=== PATIENT | male | born 1975 | race Caucasian/White ===

== ENCOUNTER → 2017-11-17 08:55 | Outpatient (REF) | payer SELFPAY | LOC: OM 08:55 | PROVIDERS: PCP Family Medicine; Visit Provider Nurse Practitioner Family | DX: Z02.79 Encounter for issue of other medical certificate (principal) ==

== ENCOUNTER 2020-04-14 17:57 | Outpatient (REF) | payer MEDICAID, SELFPAY ==
[2020-04-14 16:28] LABS: ALT 47 U/L (16-63); AST 24 U/L (15-37); Albumin 4.6 g/dL (3.4-5.0); Alkaline Phosphatase 53 U/L (46-116); Anion Gap 8.7 mmol/L (3-11); BUN 18 mg/dL (7-18); Bilirubin, Total 0.6 mg/dL (0.2-1.0); CO2 27.3 mmol/L (21.0-32.0); CREATININE 1.16 mg/dL (0.70-1.30); Chloride 101 mmol/L (98-107); Glucose 94 mg/dL (74-106); Potassium 3.8 mmol/L (3.5-5.1); Sodium 137 mmol/L (136-145); Total Protein 7.4 g/dL (6.4-8.2)
[2020-04-14 16:36] LABS: Abs Immature Grans 0.03 10^3/uL (0.0-0.06); Absolute Basophil Count 0.06 10^3/uL (0.0-0.2); Absolute Eosinophil Count 0.06 10^3/uL (0.0-0.7); Absolute Lymphocyte Count 1.93 10^3/uL (1.2-3.4); Absolute Monocyte Count 0.43 10^3/uL (0.1-0.8); Absolute Neutrophil Count 6.52 10^3/uL (1.2-6.7); Basophils % 0.7; Eosinophils % 0.7; HCT 43.9 % (40.0-50.0); HGB 14.7 g/dL (13.5-17.5); Immature Grans % 0.3; Lymphocytes % 21.4; MCH 27.4 pg (27.0-33.0); MCHC 33.5 % (32.0-36.0); MCV 81.9 fL (80-95); Monocytes % 4.8; Neutrophils % 72.1; Nucleated RBC 0 %; Platelet Count 259 10^3/uL (130-400); RBC 5.36 10^6/uL (4.36-5.78); WBC 9.03 10^3/uL (4.4-10.8)
[2020-04-17 16:50] LABS: Testosterone, Total 177 ng/dL (240-950)
== END 2020-04-14 18:17 ==
LOC: LBN 17:57
PROVIDERS: PCP Family Medicine; Visit Provider Surgery
DX: N52.9 Male erectile dysfunction, unspecified (principal); K64.9 Unspecified hemorrhoids; Z12.11 Encounter for screening for malignant neoplasm of colon; Z72.0 Tobacco use
CPT/HCPCS: 80053; 84402; 84403; 85025

== ENCOUNTER 2020-04-25 02:05 | Outpatient (CLI) | payer MEDICAID, SELFPAY ==
[2020-04-26 11:30] LABS: COVID-19 RT-PCR UVMMC Result Negative (Negative)
== END 2020-04-25 02:06 | disposition home or self-care (01) ==
LOC: LBO 02:05
PROVIDERS: PCP Nurse Practitioner Family; Visit Provider Surgery
DX: Z20.822 Contact with and (suspected) exposure to COVID-19 (principal); Z01.818 Encounter for other preprocedural examination
CPT/HCPCS: U0003

== ENCOUNTER 2020-04-29 07:21 | Day surgery (SDC) | payer MEDICAID, SELFPAY ==
[2020-04-29 07:32] VITALS: BP 122/83; PULSE 74; RESP 16; TEMP 36.7; O2SAT 100
[2020-04-29] MEDS: Lactated Ringers 1,000 ML 80 ML IV (08:50)
--- NOTE | 2020-04-29 09:41 | W.COLOREPORT ---
Date of service: 04/29/20 Time of Service: 09:42 Colonoscopy Report Date of procedure: 04/29/20 Pre-op diagnosis general: rectal bleeding/screening Post-op diagnosis procedure note: other Surgeon: Hermelinda Jansen Anesthesia proc note operative: GETA and MAC Estimated blood loss (mL): 0 Pathology: none sent Complications: None Disposition: same day Prep: Miralax/Dulcolax Retraction Time: 8 mins Procedure Description: After informed consent was obtained the patient was taken to the procedure room and placed in a left decubitous position. Monitors were applied and a time out was done. The patients name, date of , procedure, allergies to medications and metal in their body was reviewed. The patient was then sedated. Once sedated and comfortable a rectal exam was done. External exam: anal fissure in 6oclock position- 70% healed. Internal exam revealed a normal sphincter tone and no palpable masses. The scope was then introduced and retrofelexed. NO internal hemorrhoids were identified. The scope was then advanced to the cecum w/out difficulty. The TI and appendiceal orifice were identified. The prep was good. The scope was then slowly retracted over 8 minutes back into the rectum. No polyps or diverticula. x2 very small AVM's at 50cm. The scope was removed and the patient was woken up and taken back to Same day surgery in stable condition. The patient tolerated the procedure well and there were no immediate complications. Follow up: The patient should follow up in 10years unless they develop changes in bowel habits or other new gastrointestinal complaints.
--- NOTE | 2020-04-29 09:44 | PDOC.DSDIS_ITS ---
Discharge Plan Disposition Patient Disposition: HOME Condition: Good Discharge Details Reason For Visit: colon scope Attending Provider: Hermelinda Jansen Primary Care Provider: Kalen Atkinson Home Meds and New Rx's Prescriptions: No Action sildenafil [Viagra] 50 mg tablet 50 mg PO DAILY PRN (Reason: sexual activity) Qty: 5 RF: 0 Discharge Instructions Additional Instructions: Findings:rectal fissure. Treatment of your bowels daily to every other day. Avoid straining to move your bowels. I would recommend starting a fiber supplement. See attached information. Follow up: Repeat colonoscopy in 10 years time. Please call if you develop: fevers >101.5 Nausea or Vomiting Abdominal pain that is not transient DAY SURGERY UNIT POST COLONOSCOPY INSTRUCTIONS 1. Because there will be medication in your system for the next 24 hours, you may feel a little sleepy. Your coordination will be affected. Therefore: a. Do not drive or operate dangerous equipment for 24 hours. b. Do not drink alcohol beverages for 24 hours (not even beer). c. Plan to go home and rest for the day. 2. Generally there are no restrictions on your activity after a day or so has gone by, but you may feel a bit fatigued for a few days. 3 After you arrive home you may have a light meal and return to a normal diet as you can tolerate it without feeling sick to your stomach. 4. After surgery, you may feel pain or discomfort. This should be only transient, but if it persists please contact your doctor. 5. If there are any questions regarding the findings of your procedure, please feel free to contact your doctor. 6. If you are unable to contact your doctor with a problem, contact the hospital at [phone]. 7. Continue all your regular medications unless directed otherwise. I understand the above instructions and have no questions. Signature of Patient or Responsible Adult Escort Date/Time Name of Responsible Adult Escort Signature of Nurse Date/Time Starting A Taking a Fiber Supplement Dietary fiber is a plant-based nutrient that's necessary for the healthy functioning of your digestive system. In addition to helping your bowels stay regular, it's also useful for maintaining optimum cholesterol and blood sugar levels as well as a healthy weight. Although it's technically a carbohydrate, it 's not the kind that can be broken down into digestible sugars by the body. Instead, fiber travels through your digestive system while bulking and softening your stool?making it easier to pass. It also helps absorb excess blood sugars and cholesterols. The [place] [employer] recommends 30 grams (g) of fiber a day for men, and 25g a day for women. Fiber is found in fruits, vegetables, legumes, and whole grains, and is an important part of the diet. But because many people find it difficult to eat the recommended quantity of 25 to 38 g per day, fiber supplementation can be extremely helpful to ease the symptoms of a variety of digestive discomforts like diarrhea and constipation. Today, many fiber supplements are found on the market containing one of three active ingredients: psyllium, methylcellulose, and polycarbophil Health Benefits If you have diarrhea, supplementing with fiber can bulk up the stool and reduce frequent urges to evacuate the bowel. If you have constipation, fiber supplements can soften your stool and speed up its movement through the colon. To understand how fiber helps relieve symptoms of both diarrhea and constipation, it's important to differentiate between soluble fiber and insoluble fiber. Soluble fiber forms a gel in your colon by absorbing water and retaining it in your stool, which makes bowel movements softer and easier to pass. Insoluble fiber bulks stool up, which also helps it move through your intestines more easily. Thus, fiber can also help you avoid hemorrhoids and anal fissures that can develop when straining to pass a bowel movement. Additionally, supplementing with fiber can be part of a treatment plan for conditions such as irritable bowel syndrome (IBS), various types of inflammatory bowel disease (IBD) like Crohn's disease and ulcerative colitis, as well as diverticulosis. Fiber increases satiety, or fullness, and is thus helpful for those looking to lose weight or maintain a healthy weight. Sufficient fiber intake has also been shown to decrease the risk of certain cancers, heart disease, and diabetes. There is also evidence that enough fiber, when combined with a diet rich in Vitamin A, has a protective effect against food allergies. Possible Side Effects The potential side effects of fiber supplementation include: ? Gas and gas pain ? Abdominal bloating ? Lowered blood sugar ? Diarrhea or constipation (if taken in excess) ? Weight loss ? Lessened effectiveness of medications and vitamins (if taken at the same time as fiber) Because of the way fiber supplements bulk up in the intestinal tract and absorb surrounding materials, they can interfere with the body's ability to assimilate medications, vitamins, and nutrients. For that reason, it's important to consume fiber supplements at least one hour after, or two hours before, taking medications and important vitamins. Dosage and Preparation Fiber supplements often come in the form of powders meant to be mixed with water or another liquid. They also are available in capsule form, or as additives to foods like crackers, cookies, cereals, and bars. Dosage will vary based on the product and your desired effects. If you are healthy, it's generally recommended to start with a low dose of fiber and build up until you've reached optimum total daily fiber intake?roughly 25g for women and 38g for men?which should also include your dietary sources of fiber What to Look For When shopping for fiber, look closely at the ingredients to discover which form of fiber is used in each commercial brand. Also, if you're avoiding added sugar, salt, flavorings, or dyes, check the label for these common additives. If you're just starting with a fiber supplement, use a low dose and drink plenty of water when you take the supplement and throughout the day. If you are not used to eating a high fiber diet/taking a supplement, start with about half of the recommended dose. Always remember to take fiber with 8oz of water. Continue at this dose for about 2-3 weeks, and then slowly increase up to the full dose daily. Fiber is a natural product- you can increase the dose to 2-4 times a day as needed to have a formed BM without straining. Increase the dose slowly until you reach either the desired total intake or a specific effect. Psyllium Psyllium is made from the seeds of a plant in the Plantago genus and contains about 70% soluble fiber and 30% insoluble fiber. It helps the stool absorb water and bulks it up, making it easier to pass. It also breaks down in the gut (a process called fermentation) and becomes a food source for the good bacteria that reside there. Psyllium is used for treating constipation, irritable bowel syndrome (IBS), and diverticulosis. In addition, psyllium may lower cholesterol levels and provide some protection from heart disease. On the downside, psyllium may cause intestinal gas and contains a small number of calories (roughly 20 calories per tablespoon). Psyllium is sold under the brand names Metamucil, Fiberall, Hydrocil, Konsyl, Perdiem, and Serutan. Methylcellulose Methylcellulose is a non-allergenic and non-fermentable fiber created from the cell tate of plants. Instead of being absorbed by the intestinal tract, methylcellulose pulls in water to create a softer stool. Methylcellulose is often used to treat constipation, diverticulosis, IBS, and some causes of diarrhea. Because it does not ferment, it is less likely than psyllium to cause intestinal gas; however, methylcellulose does not feed healthy gut bacteria the way psyllium does. It can be used long term care phlebotomist but it should be noted that, because it can interfere with absorption, methylcellulose should be taken apart from any prescribed medications. Methylcellulose is sold under the brand name Citrucel. Polycarbophil Similar to methylcellulose, polycarbophil absorbs water in the intestinal tract and creates a bulkier and softer stool. Because it does not ferment and is not absorbed by the body, polycarbophil is less likely to cause bloating and can, therefore, be comfortably used long term care phlebotomist. Polycarbophil may be used to treat constipation, IBS, and diverticulosis, but is not appropriate for people who have difficulty swallowing. Like methylcellulose, it should be taken about two hours apart from medications. Polycarbophil is sold under the brand names Fibercon, Fiber-Lax, Equalactin, and Mitrolan. Other Questions What are the best dietary sources of fiber? Whether or not you choose to supplement with fiber, it's still important to include a variety of high-fiber foods in your diet, such as: ? Fresh fruit (pears, apples, strawberries, bananas) ? Fresh vegetables (broccoli, Brussel sprouts, beets, and carrots) ? Legumes (lentils, split peas, kidney beans, chickpeas, black beans, zaman beans) ? Whole Grains (quinoa, oats, brown rice, millet, barley) ? Other food sources of fiber (popcorn, sweet potatoes, and ann) What time of day is best? Different manufacturers may have varying recommendations on when and how frequently to take fiber supplements. You may want to divide your daily dose into two or three portions to reduce bloating and gas that could occur when taking a large dose all at once. To avoid malabsorption, it's important to take medications or vitamins either one hour before, or two hours after, taking fiber supplements. If using a powdered form of fiber, be sure to dissolve it well. No matter what kind of fiber supplement you are using, be sure to drink plenty of water, at least 8ox, unless you are on fluid restrictions. Activity:: No strenuous activity or lifting over 20 pounds x 24 hours. 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
--- NOTE | 2020-04-29 09:49 | COLE_ITS ---
Date of service: 04/29/20 Time of Service: 09:49 Colonoscopy Report Date of procedure: 04/29/20 Post-op diagnosis procedure note: other (fissure. x2 small AVM's ) Surgeon: Hermelinda Jansen Anesthesia proc note operative: GETA Estimated blood loss (mL): 0 Pathology: none sent Complications: None Disposition: same day Prep: Miralax/Dulcolax Retraction Time: 8mins Procedure Description: After informed consent was obtained the patient was taken to the procedure room and placed in a left decubitous position. Monitors were applied and a time out was done. The patients name, date of , procedure, allergies to medications and metal in their body was reviewed. The patient was then sedated. Once sedated and comfortable a rectal exam was done. External exam shows a small anal fissure in the 6 o'clock position. It is about 75% healed. There is no sentinel tag. Internal exam revealed a normal sphincter tone and no palpable masses. The prostate normal. The scope was then introduced and retrofelexed. no internal hemorrhoids were identified. The scope was then advanced to the cecum w/out difficulty. The TI and appendiceal orifice were identified. The prep was good. The scope was then slowly retracted over minutes back into the rectum. x2 very small AVM's at 50cm. Do not feel that these are contributing to the bleeding and these were not fulgurated. There were no polyps, diverticula, or other abnormalities. The mucosa is pink and healthy. the scope was removed and the patient was woken up and taken back to Same day surgery in stable condition. The patient tolerated the procedure well and there were no immediate co mplications. Follow up: The patient should follow up in 10 years unless they develop changes in bowel habits or other new gastrointestinal complaints. I did review with the patient the findings at the time of surgery. I do recommend he start a fiber supplement and avoid straining to go to the bathroom. We discussed symptoms/supportive care. If he is still having pain or bleeding after 1 to 2 months, he should follow-up with us in the clinic and we will consider adding in a topical medication. This is a very minor disease, and he should be able to control this with diet and lifestyle. Patient is in agreement
[2020-04-29 10:17] VITALS: BP 114/76; PULSE 66; RESP 16; TEMP 36.5; O2SAT 99
--- NOTE | 2020-04-29 10:45 | PDOC.DSDIS_ITS ---
Discharge Plan Disposition Patient Disposition: HOME Condition: Good Discharge Details Reason For Visit: colon scope Attending Provider: Hermelinda Jansen Primary Care Provider: Kalen Atkinson Home Meds and New Rx's Prescriptions: No Action sildenafil [Viagra] 50 mg tablet 50 mg PO DAILY PRN (Reason: sexual activity) Qty: 5 RF: 0 Discharge Instructions Additional Instructions: Findings:rectal fissure. Treatment of your bowels daily to every other day. Avoid straining to move your bowels. I would recommend starting a fiber supplement. See attached information. F/u in 1 months time if still having pain or bleeding Follow up: Repeat colonoscopy in 10 years time. Please call if you develop: fevers >101.5 Nausea or Vomiting Abdominal pain that is not transient DAY SURGERY UNIT POST COLONOSCOPY INSTRUCTIONS 1. Because there will be medication in your system for the next 24 hours, you may feel a little sleepy. Your coordination will be affected. Therefore: a. Do not drive or operate dangerous equipment for 24 hours. b. Do not drink alcohol beverages for 24 hours (not even beer). c. Plan to go home and rest for the day. 2. Generally there are no restrictions on your activity after a day or so has gone by, but you may feel a bit fatigued for a few days. 3 After you arrive home you may have a light meal and return to a normal diet as you can tolerate it without feeling sick to your stomach. 4. After surgery, you may feel pain or discomfort. This should be only transient, but if it persists please contact your doctor. 5. If there are any questions regarding the findings of your procedure, please feel free to contact your doctor. 6. If you are unable to contact your doctor with a problem, contact the hospital at [phone]. 7. Continue all your regular medications unless directed otherwise. I understand the above instructions and have no questions. Signature of Patient or Responsible Adult Escort Date/Time Name of Responsible Adult Escort Signature of Nurse Date/Time Starting A Taking a Fiber Supplement Dietary fiber is a plant-based nutrient that's necessary for the healthy functioning of your digestive system. In addition to helping your bowels stay regular, it's also useful for maintaining optimum cholesterol and blood sugar levels as well as a healthy weight. Although it's technically a carbohydrate, it's not the kind that can be broken down into digestible sugars by the body. Instead, fiber travels through your digestive system while bulking and softening your stool?making it easier to pass. It also helps absorb excess blood sugars and cholesterols. The [place] [employer] recommends 30 grams (g) of fiber a day for men, and 25g a day for women. Fiber is found in fruits, vegetables, legumes, and whole grains, and is an important part of the diet. But because many people find it difficult to eat the recommended quantity of 25 to 38 g per day, fiber supplementation can be extremely helpful to ease the symptoms of a variety of digestive discomforts like diarrhea and constipation. Today, many fiber supplements are found on the market containing one of three active ingredients: psyllium, methylcellulose, and polycarbophil Health Benefits If you have diarrhea, supplementing with fiber can bulk up the stool and reduce frequent urges to evacuate the bowel. If you have constipation, fiber supplements can soften your stool and speed up its movement through the colon. To understand how fiber helps relieve symptoms of both diarrhea and constipation, it's important to differentiate between soluble fiber and insoluble fiber. Soluble fiber forms a gel in your colon by absorbing water and retaining it in your stool, which makes bowel movements softer and easier to pass. Insoluble fiber bulks stool up, which also helps it move through your intestines more easily. Thus, fiber can also help you avoid hemorrhoids and anal fissures that can develop when straining to pass a bowel movement. Additionally, supplementing with fiber can be part of a treatment plan for conditions such as irritable bowel syndrome (IBS), various types of inflammatory bowel disease (IBD) like Crohn's disease and ulcerative colitis, as well as diverticulosis. Fiber increases satiety, or fullness, and is thus helpful for those looking to lose weight or maintain a healthy weight. Sufficient fiber intake has also been shown to decrease the risk of certain cancers, heart disease, and diabetes. There is also evidence that enough fiber, when combined with a diet rich in Vitamin A, has a protective effect against food allergies. Possible Side Effects The potential side effects of fiber supplementation include: ? Gas and gas pain ? Abdominal bloating ? Lowered blood sugar ? Diarrhea or constipation (if taken in excess) ? Weight loss ? Lessened effectiveness of medications and vitamins (if taken at the same time as fiber) Because of the way fiber supplements bulk up in the intestinal tract and absorb surrounding materials, they can interfere with the body's ability to assimilate medications, vitamins, and nutrients. For that reason, it's important to consume fiber supplements at least one hour after, or two hours before, taking medications and important vitamins. Dosage and Preparation Fiber supplements often come in the form of powders meant to be mixed with water or another liquid. They also are available in capsule form, or as additives to foods like crackers, cookies, cereals, and bars. Dosage will vary based on the product and your desired effects. If you are healthy, it's generally recommended to start with a low dose of fiber and build up until you've reached optimum total daily fiber intake?roughly 25g for women and 38g for men?which should also include your dietary sources of fiber What to Look For When shopping for fiber, look closely at the ingredients to discover which form of fiber is used in each commercial brand. Also, if you're avoiding added sugar, salt, flavorings, or dyes, check the label for these common additives. If you're just starting with a fiber supplement, use a low dose and drink plenty of water when you take the supplement and throughout the day. If you are not used to eating a high fiber diet/taking a supplement, start with about half of the recommended dose. Always remember to take fiber with 8oz of water. Continue at this dose for about 2-3 weeks, and then slowly increase up to the full dose daily. Fiber is a natural product- you can increase the dose to 2-4 times a day as needed to have a formed BM without straining. Increase the dose slowly until you reach either the desired total intake or a specific effect. Psyllium Psyllium is made from the seeds of a plant in the Plantago genus and contains about 70% soluble fiber and 30% insoluble fiber. It helps the stool absorb water and bulks it up, making it easier to pass. It also breaks down in the gut (a process called fermentation) and becomes a food source for the good bacteria that reside there. Psyllium is used for treating constipation, irritable bowel syndrome (IBS), and diverticulosis. In addition, psyllium may lower cholesterol levels and provide some protection from heart disease. On the downside, psyllium may cause intestinal gas and contains a small number of calories (roughly 20 calories per tablespoon). Psyllium is sold under the brand names Metamucil, Fiberall, Hydrocil, Konsyl, Perdiem, and Serutan. Methylcellulose Methylcellulose is a non-allergenic and non-fermentable fiber created from the cell tate of plants. Instead of being absorbed by the intestinal tract, methylcellulose pulls in water to create a softer stool. Methylcellulose is often used to treat constipation, diverticulosis, IBS, and some causes of diarrhea. Because it does not ferment, it is less likely than psyllium to cause intestinal gas; however, methylcellulose does not feed healthy gut bacteria the way psyllium does. It can be used bed bug exterminator but it should be noted that, because it can interfere with absorption, methylcellulose should be taken apart from any prescribed medications. Methylcellulose is sold under the brand name Citrucel. Polycarbophil Similar to methylcellulose, polycarbophil absorbs water in the intestinal tract and creates a bulkier and softer stool. Because it does not ferment and is not absorbed by the body, polycarbophil is less likely to cause bloating and can, therefore, be comfortably used bed bug exterminator. Polycarbophil may be used to treat constipation, IBS, and diverticulosis, but is not appropriate for people who have difficulty swallowing. Like methylcellulose, it should be taken about two hours apart from medications. Polycarbophil is sold under the brand names Fibercon, Fiber-Lax, Equalactin, and Mitrolan. Other Questions What are the best dietary sources of fiber? Whether or not you choose to supplement with fiber, it's still important to include a variety of high-fiber foods in your diet, such as: ? Fresh fruit (pears, apples, strawberries, bananas) ? Fresh vegetables (broccoli, Brussel sprouts, beets, and carrots) ? Legumes (lentils, split peas, kidney beans, chickpeas, black beans, zaman beans) ? Whole Grains (quinoa, oats, brown rice, millet, barley) ? Other food sources of fiber (popcorn, sweet potatoes, and ann) What time of day is best? Different manufacturers may have varying recommendations on when and how frequently to take fiber supplements. You may want to divide your daily dose into two or three portions to reduce bloating and gas that could occur when taking a large dose all at once. To avoid malabsorption, it's important to take medications or vitamins either one hour before, or two hours after, taking fiber supplements. If using a powdered form of fiber, be sure to dissolve it well. No matter what kind of fiber supplement you are using, be sure to drink plenty of water, at least 8ox, unless you are on fluid restrictions. TREATMENT How is an anal fissure treated? You may also need to have the cause of your anal fissure treated. You may need any of the following to treat your anal fissure: Home care: Sitz bath: You may need to soak in a warm tub or take a sitz bath. A sitz bath may decrease your pain and relax your anal muscle. You may need to do this more than once a day. Ask your healthcare provider for information on how to use a sitz bath and how often you should bathe. Nutrition: Eat foods that are high in fiber. This will help keep your bowel movements soft. High-fiber foods include fruits, vegetables, and whole grains. Drink more liquids: Liquids may help soften your bowel movements. This will help prevent you from straining. Ask your healthcare provider how much liquid you should drink each day. Medicine: Topical medicine: Topical medicine may be put just inside your anus. The medicine may help your anal muscle relax and increase blood flow to your anus. This medicine may contain anesthesia to help decrease your pain. Your healthcare provider will teach you the right way to use topical medicine. Botulinum toxin: This is medicine given as a shot into the skin around your anus. It helps your anal muscle relax. Ask your healthcare provider for more information about botulinum toxin. Surgery: You may need surgery if other treatments do not work. You may also need surgery if your anal fissure is very painful. Surgery is often used for chronic anal fissures. The most common surgery is called a lateral internal sphincterotomy. A small part of your anal muscle is cut to help relax your anal muscle and decrease your pain. Your healthcare provider may remove all or some of your anal fissure. This is called a fissurectomy. What are the risks of an anal fissure? Topical medicine for your anal fissure may give you a headache or make you feel lightheaded. Your skin may become red and you may also have a burning feeling on your anus. The botulinum toxin shot may hurt and may cause muscle weakness. It may also cause a painful infection of the tissue covering your anal muscles. You may also be less able to feel the area in and around your anus. Botulinum toxin or surgery may make you unable to control your bowel movements or passing gas. This is called incontinence. Surgery may also cause bleeding, an infection, or injury to your anal tissue. Even with treatment, your anal fissure may occur again. Without treatment, your anal fissure may deepen or become infected. You may develop an abnormal opening from your anus to nearby organs. Scar tissue may form in your anus and cause it to become narrow. Without treatment, you may have worse pain during bowel movements. When should I contact my healthcare provider? You are unable to have a bowel movement. You have spasms in your anus that do not stop. When should I seek immediate care or call 911? You have very bad pain in or around your anus. You have bleeding from your anus that does not stop. CARE AGREEMENT: You have the right to help plan your care. Learn about your health condition and how it may be treated. Discuss treatment options with your healthcare providers to decide what care you want to receive. You always have the right to refuse treatment. The above information is an certified medical aide only. It is not intended as medical advice for individual conditions or treatments. Talk to your doctor, nurse or pharmacist before following any medical regimen to see if it is safe and effective for you. ? Copyright [employer] 2019 Information is for End User's use only and may not be sold, redistributed or otherwise used for commercial purposes. All illustrations and images included in CareNotes? are the copyrighted property of P Activity:: No strenuous activity or lifting over 20 pounds x 24 hours. 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
== END 2020-04-29 10:54 | disposition home or self-care (01) ==
PROVIDERS: PCP Nurse Practitioner Family; Visit Provider Surgery
PROC: 0DJD8ZZ Inspection of Lower Intestinal Tract, Via Natural or Artificial Opening Endoscopic (ICD-10-PCS; CPT 45378; principal; 2020-04-29 09:15)
DX: K62.5 Hemorrhage of anus and rectum (principal); K60.1 Chronic anal fissure; Q27.33 Arteriovenous malformation of digestive system vessel
CPT/HCPCS: 45378

== ENCOUNTER 2020-06-04 00:41 | Outpatient (CLI) | payer MEDICAID, SELFPAY ==
--- NOTE | 2020-06-04 08:30 | DI.US_ITS ---
EXAM: US SOFT TISSUE HEAD OR NECK CLINICAL HISTORY: Scalp mass. Hx of prev. excision '05,r22.0. TECHNIQUE: Ultrasound was performed of the area of concern on the front of the scalp was performed, using standard protocol. COMPARISON: No exams were available for comparison FINDINGS: There is no evidence of subcutaneous cyst at this level. However, there is some deeper slightly asym metric tissue just superficial to the outer table of the skull, apparently corresponding to the palpa ble area. There is no obvious dehiscence of the subjacent bone. No obvious vessels seen in this reg ion. IMPRESSION: Relatively avascular asymmetric tissue corresponding to the area of concern, measuring approximately 11 x 10 millimeters. This is non cystic. Recommend follow-up MRI. DATA REPOSITORY:
== END 2020-06-04 01:01 ==
PROVIDERS: PCP Nurse Practitioner Family; Visit Provider Physical Therapy Assistant
DX: R22.0 Localized swelling, mass and lump, head (principal)
CPT/HCPCS: 76536

== ENCOUNTER 2021-02-02 11:11 | Emergency (ER) | payer MEDICAID, SELFPAY ==
[2021-02-02 11:25] VITALS: BP 134/100; PULSE 90; RESP 14; TEMP 36.6; O2SAT 98
--- NOTE | 2021-02-02 11:31 | DI.CT_ITS ---
Exam(s) CT ABDOMEN PELVIS W EXAM: CT ABDOMEN PELVIS W CLINICAL HISTORY: L abd pain. TECHNIQUE: Imaging Protocol: Axial computed tomography images with coronal and sagittal reformatted images were created and reviewed CONTRAST MATERIAL: Intravenous: Omnipaque 100cc Oral: None COMPARISON: No exams were available for comparison FINDINGS: VISUALIZED LUNG BASES: No nodules nor pleural effusions evident. ABDOMEN: There is no ascites. LIVER: There are no focal hepatic lesions evident. Mild steatosis. No dilatation of intrahepatic du cts. GALLBLADDER/BILIARY: No obvious gallbladder pathology. CBD is not dilated. PANCREAS: No evidence of pancreatic mass nor dilatation of the pancreatic duct. SPLEEN: Spleen is not enlarged. No obvious intrasplenic lesions. Splenic and portal veins are paten t. ADRENALS: There are no significant adrenal masses. KIDNEYS:No cysts evident. No solid renal masses. No calculi nor hydronephrosis.. ABDOMINAL AORTA: Abdominal aorta is not enlarged. LYMPH NODES:There is no retroperitoneal nor paraaortic adenopathy. ABDOMINAL WALL: No evidence of significant anterior abdominal wall nor inguinal hernia. GI: There is abnormal streaking anterior to the descending-left colon starting just beyond the spleni c flexure and extending down into the upper iliac fossa. Possibly related to diverticulitis. Appear s phlegmonous but without an abscess at this time. The sigmoid itself does not exhibit diverticular disease below this level. There is no free air. PELVIS: GI: The appendix is surgically absent.No evidence of sigmoid diverticulitis. LYMPH NODES: There is no intrapelvic nor inguinal adenopathy. REPRODUCTIVE: Prostate not enlarged URINARY BLADDER: No calculi nor obvious masses evident OSSEOUS: No significant osseous lesions. IMPRESSION: 1. There is inflammatory streaking around the descending-left colon consistent with inflammatory proc ess, either diverticulitis or epiploic appendagitis. No formed abscess evident at this time but appe ars at high risk for abscess development. There is no bowel obstruction at this level. This extends down into the upper left iliac fossa. Remainder of the sigmoid appears unremarkable. 2. The appendix is surgically absent. Report called by myself to the ER provider. RADIATION DOSE DELIVERED: 1,036.37mGy.cm Total DLP DATA REPOSITORY: All CT scans at this facility are submitted to the National Radiology Data Registry (NRDR) Dose Index Registry (DIR) with the [employer] ([employer]). RADIATION OPTIMIZATION: All CT scans at this facility use at least one of these dose optimization te chniques: automated exposure control; mA and/or kV adjustment per patient size (includes targeted exa ms where dose is matched to clinical indication); or iterative reconstruction.
[2021-02-02] MEDS: Omnipaque 350 MG/ML 100 ML BTL IV (11:50)
[2021-02-02 12:15] VITALS: BP 143/81; PULSE 76; RESP 14; TEMP 36.6; O2SAT 100
[2021-02-02 12:24] LABS: Bilirubin Negative (Negative); Blood Negative (Negative); Clarity Clear (Clear); Glucose Negative (Negative); Ketones Negative (Negative); Leukocyte Esterase Negative (Negative); Nitrite Negative (Negative); Urobilinogen 0.2 EU/dL (Up TO 0.2)
[2021-02-02 12:37] LABS: Abs Immature Grans 0.01 10^3/uL (0.0-0.06); Absolute Basophil Count 0.06 10^3/uL (0.0-0.2); Absolute Lymphocyte Count 1.85 10^3/uL (1.2-3.4); Absolute Monocyte Count 0.45 10^3/uL (0.1-0.8); Absolute Neutrophil Count 4.42 10^3/uL (1.2-6.7); Basophils % 0.9; Eosinophils % 2.9; HCT 44.9 % (40.0-50.0); HGB 14.8 g/dL (13.5-17.5); Immature Grans % 0.1; Lymphocytes % 26.5; MCH 27.7 pg (27.0-33.0); MCV 84.1 fL (80-95); MPV 9.9 fL (8.0-11.0); Monocytes % 6.4; Neutrophils % 63.2; Nucleated RBC 0 %; Platelet Count 234 10^3/uL (130-400); RBC 5.34 10^6/uL (4.36-5.78); RDW 12.2 % (11.8-14.1); RDW-SD 37.1 fL; WBC 6.99 10^3/uL (4.4-10.8)
[2021-02-02 13:12] LABS: ALT 36 U/L (16-63); AST 22 U/L (15-37); Albumin 4.5 g/dL (3.4-5.0); Alkaline Phosphatase 53 U/L (46-116); Anion Gap 7.3 mmol/L (3-11); BUN 15 mg/dL (7-18); Bilirubin, Total 0.8 mg/dL (0.2-1.0); CO2 30.7 mmol/L (21.0-32.0); Calcium 9.1 mg/dL (8.5-10.1); Chloride 104 mmol/L (98-107); Glucose 91 mg/dL (74-106); Lipase 91 U/L (73-393); Potassium 4.2 mmol/L (3.5-5.1); Sodium 142 mmol/L (136-145); Total Protein 7.7 g/dL (6.4-8.2)
--- NOTE | 2021-02-02 13:21 | W.ED.GENAD ---
Discharge Plan Disposition Patient Disposition: HOME Condition: Stable Discharge Details Clinical Impression: Diverticulitis Primary Care Provider: Kalen Atkinson ED Provider: Justin Dejesus Home Meds and New Rx's Prescriptions: New metronidazole 500 mg tablet 500 mg PO Q6H 10 Days Qty: 40 RF: 0 ciprofloxacin HCl [Cipro] 500 mg tablet 500 mg PO BID 10 Days Qty: 20 RF: 0 Continued sildenafil [Viagra] 50 mg tablet 50 mg PO DAILY PRN (Reason: sexual activity) Qty: 5 RF: 0 Discharge Instructions Instructions: Diverticulitis (ED) Additional Instructions: Your laboratory values are unremarkable for any abnormalities. CT imaging reveals a left sided colon inflammation, concerning for diverticulitis versus epiploic appendagitis. Epiploic appendagitis is typically self-limiting, [id number] Tylenol and/or Motrin for discomfort. Given concern for diverticulitis, I am initiating Cipro and Flagyl prescriptions, take as directed. You may want to avoid small nuts and seeds. You may also eat foods with live culture bacteria to help supply your guts with healthy bacterial andrew. Please watch for new or worsening symptoms and return to the ER for any concerns. I personally spoke with your primary care Kalen Atkinson, he is aware of the ER visit and treatment course, be happy to follow you as an outpatient, please call his office tomorrow. Medical Decision Making 45-year-old gentleman presents with 4-5-day history of left-sided abdominal pain, sent to the ER for further evaluation by his primary care provider. Concern initially for diverticulitis. Plan is to obtain IV access, CBC, CMP, lipase, urinalysis, CT imaging of abdomen and pelvis with IV contrast. Laboratory values do not reveal any obvious emergent process. No leukocytosis or evidence of infection. LFTs also unremarkable. CT imaging concerning for diverticulitis versus epiploic appendagitis. I did discuss the case with the patient's primary care provider Kalen Atkinson, will initiate Cipro and Flagyl treatment, and he will be happy to see the patient as an outpatient. Discussed work-up with patient. He has additional questions or concerns and is comfortable discharge. Standard discharge and return precautions provided This documentation was generated using [employer] system, please disregard any oddities of phrase or misspellings. Medical Records Medical records reviewed: Yes I reviewed the patient's medical records. Imaging Data Radiologic Study: Attestation: I personally reviewed and interpreted this imaging study as follows: Imaging: X-Ray Radiologist's impression: Exam(s) CT ABDOMEN PELVIS W EXAM: CT ABDOMEN PELVIS W CLINICAL HISTORY: L abd pain. TECHNIQUE: Imaging Protocol: Axial computed tomography images with coronal and sagittal reformatted images were created and reviewed CONTRAST MATERIAL: Intravenous: Omnipaque 100cc Oral: None COMPARISON: No exams were available for comparison FINDINGS: VISUALIZED LUNG BASES: No nodules nor pleural effusions evident. ABDOMEN: There is no ascites. LIVER: There are no focal hepatic lesions evident. Mild steatosis. No dilatation of intrahepatic ducts. GALLBLADDER/BILIARY: No obvious gallbladder pathology. CBD is not dilated. PANCREAS: No evidence of pancreatic mass nor dilatation of the pancreatic duct. SPLEEN: Spleen is not enlarged. No obvious intrasplenic lesions. Splenic and portal veins are patent. ADRENALS: There are no significant adrenal masses. KIDNEYS:No cysts evident. No solid renal masses. No calculi nor hydronephrosis.. ABDOMINAL AORTA: Abdominal aorta is not enlarged. LYMPH NODES:There is no retroperitoneal nor paraaortic adenopathy. ABDOMINAL WALL: No evidence of significant anterior abdominal wall nor inguinal hernia. GI: There is abnormal streaking anterior to the descending-left colon starting just beyond the splenic flexure and extending down into the upper iliac fossa. Possibly related to diverticulitis. Appears phlegmonous but without an abscess at this time. The sigmoid itself does not exhibit diverticular disease below this level. There is no free air. PELVIS: GI: The appendix is surgically absent.No evidence of sigmoid diverticulitis. LYMPH NODES: There is no intrapelvic nor inguinal adenopathy. REPRODUCTIVE: Prostate not enlarged URINARY BLADDER: No calculi nor obvious masses evident OSSEOUS: No significant osseous lesions. IMPRESSION: 1. There is inflammatory streaking around the descending-left colon consistent with inflammatory process, either diverticulitis or epiploic appendagitis. No formed abscess evident at this time but appears at high risk for abscess development. There is no bowel obstruction at this level. This extends down into the upper left iliac fossa. Remainder of the sigmoid appears unremarkable. 2. The appendix is surgically absent. Report called by myself to the ER provider. Lab Data Lab results reviewed: Yes I reviewed the patient's lab results. Labs: Laboratory Tests Range/Units 02/02/21 02/02/21 02/02/21 11:35 12:28 12:28 WBC (4.4-10.8) 10^3/uL 6.99 RBC (4.36-5.78) 10^6/uL 5.34 Hgb (13.5-17.5) g/dL 14.8 Hct (40.0-50.0) % 44.9 MCV (80-95) fL 84.1 MCH (27.0-33.0) pg 27.7 MCHC (32.0-36.0) % 33.0 RDW (11.8-14.1) % 12.2 Plt Count (130-400) 10^3/uL 234 MPV (8.0-11.0) fL 9.9 Immature Gran % 0.1 Neutrophils % 63.2 Lymphocytes % 26.5 Monocytes % 6.4 Eosinophils % 2.9 Basophils % 0.9 Nucleated RBC % % 0 Absolute Neutrophils (1.2-6.7) 10^3/uL 4.42 Absolute Lymphocytes (1.2-3.4) 10^3/uL 1.85 Absolute Monocytes (0.1-0.8) 10^3/uL 0.45 Absolute Eosinophils (0.0-0.7) 10^3/uL 0.20 Absolute Basophils (0.0-0.2) 10^3/uL 0.06 Sodium (136-145) mmol/L 142 Potassium (3.5-5.1) mmol/L 4.2 Chloride (98-107) mmol/L 104 Carbon Dioxide (21.0-32.0) mmol/L 30.7 Anion Gap (3-11) mmol/L 7.3 BUN (7-18) mg/dL 15 Creatinine (0.70-1.30) mg/dL 1.0 Estimated GFR/1.73 m2 (mL/min/1.73m2) >= 60.00 Glucose (74-106) mg/dL 91 Calcium (8.5-10.1) mg/dL 9.1 Total Bilirubin (0.2-1.0) mg/dL 0.8 AST (15-37) U/L 22 ALT (16-63) U/L 36 Alkaline Phosphatase (46-116) U/L 53 Total Protein (6.4-8.2) g/dL 7.7 Albumin (3.4-5.0) g/dL 4.5 Lipase (73-393) U/L 91 Urine Color (Yellow) Straw Urine Clarity (Clear) Clear Urine pH (5-8) 6.0 Ur Specific Riner (1.005-1.025) 1.010 Urine Protein (Negative) mg/dL Negative Urine Ketones (Negative) mg/dL Negative Urine Blood (Negative) Negative Urine Nitrite (Negative) Negative Urine Bilirubin (Negative) Negative Urine Urobilinogen (Up TO 0.2) EU/dL 0.2 Ur Leukocyte Esterase (Negative) Negative Urine Glucose (Negative) mg/dL Negative HPI General Mode of arrival: ambulatory. Date/Time Provider Initiated Documentation: 02/02/21 11:31. Limitations to Documentation: no limitations. Information obtained by: patient. HPI Narrative: This is a 45-year-old gentleman presenting to the ER from his primary care office for evaluation of 5-day history of left-sided abdominal pain, concern for diverticulitis. Patient reports left-sided abdominal pain moderate when it began, atraumatic, worsening over the past couple of days. Denies any other symptoms. Denies radiation of the pain. Denies recent illness or trauma. Denies change of appetite. Denies fever, neck pain, chest pain, shortness of breath, back pain, nausea, vomiting, dysuria, hematuria, diarrhea or constipation. No radiation of pain into his groin, penis or testicles. No radiation of pain down his leg. Patient has never had this before. Reports a normal colonoscopy within the last year. Related Data Home Medications Medication Instructions Recorded Confirmed sildenafil 50 mg tablet 50 mg PO DAILY PRN #5 tab 03/28/20 02/02/21 ciprofloxacin HCl [Cipro] 500 mg PO BID 10 Days #20 tab 02/02/21 metronidazole 500 mg PO Q6H 10 Days #40 tab 02/02/21 Previous Rx's Medication Instructions Recorded sildenafil 50 mg tablet 50 mg PO DAILY PRN #5 tab 03/28/20 ciprofloxacin HCl [Cipro] 500 mg PO BID 10 Days #20 tab 02/02/21 metronidazole 500 mg PO Q6H 10 Days #40 tab 02/02/21 Allergies Allergy/AdvReac Type Severity Reaction Status Date / Time amoxicillin Allergy Severe Swelling/Ed Verified 02/02/21 11:28 edison erythromycin base Allergy Severe Verified 02/02/21 11:28 Penicillins Allergy Severe Anaphylaxsi Verified 02/02/21 11:28 s General Stated Complaint: Abd Prob MARAH: 3 Review of Systems Constitutional Constitutional: Denies fever(s) Cardiovascular Cardiovascular: Denies chest pain and Denies dyspnea Respiratory Respiratory: Denies dyspnea Gastrointestinal Gastrointestinal: Reports abdominal pain, Denies constipation, Denies diarrhea, Denies nausea and Denies vomiting Genitourinary Genitourinary: Denies hematuria and Denies dysuria Musculoskeletal Musculoskeletal: Denies back pain Integumentary/Breasts Skin/Breast: Denies rash [facility] Active Problem List Chronic anal fissure (Acute) Colon cancer screening (Acute) Erectile dysfunction (Acute) Smokeless tobacco use (Acute) Lump (Acute) Scalp mass (Acute) Penile lesion (Acute) Carpal tunnel syndrome on both sides (Acute) Medical History Normal colonoscopy Surgical History History of appendectomy History of colonoscopy (~04/29/20) Social History Smoking/Tobacco Use Status: Current-Occasional Tobacco Type: smokeless tobacco Smoking risk assessment performed?: Yes Alcohol Intake: current Alcohol Intake frequency: a few times a week Alcohol type: beer Drug use: Occasionally Substance use type: marijuana Current gender identity: male Do you feel safe at home: Yes Do you feel safe in your relationship?: Yes Exam Const General: cooperative, healthy appearing, comfortable and no acute distress Orientation: alert, awake and oriented x3 HENMT Head: normal to inspection, normocephalic and atraumatic Face and sinus: normal facial exam Mouth: moist mucous membranes Eyes General: appearance normal, both eyes and all related structures Conjunctivae: conjunctivae normal Neck Neck: normal visual inspection, full ROM, trachea midline and supple Resp Effort & Inspection: normal respiratory effort and able to speak in complete sentences Auscultation: clear to auscultation bilaterally Cardio Rate: regular rate Rhythm: regular rhythm GI Inspection: normal to inspection Palpation: soft, not firm, no guarding, no pulsatile masses and tender in the LLQ and in the LUQ; not at McBurney's point, De Leon's sign negative, with no rebound tenderness and Rovsing's sign negative Auscultation: normal bowel sounds Back/Spine/Pelvis Back: no CVA tenderness and No back tenderness Skin General skin exam: no rashes or lesions noted Neuro General: patient alert, patient awake, moves all extremities and no focal motor deficits Cognition: normal cognition Speech: speech normal Gait: normal gait Sensory Exam: no sensory deficits noted Psych Appearance: grossly normal Mental Status: mental status grossly normal Course Vital Signs Vital signs: Vital Signs Temperature 36.6 C 02/02/21 11:25 Pulse 90 02/02/21 11:25 Respiratory Rate 14 02/02/21 11:25 Blood Pressure 134/100 H 02/02/21 11:25 Pulse Oximetry 98 02/02/21 11:25 Temperature 36.6 C 02/02/21 12:15 Temperature Source Skin 02/02/21 11:25 Pulse 76 02/02/21 12:15 Respiratory Rate 14 02/02/21 12:15 Respiratory Effort Non-Labored 02/02/21 11:29 Blood Pressure 143/81 H 02/02/21 12:15 Blood Pressure Position Sitting 02/02/21 11:25 Pulse Oximetry 100 02/02/21 12:15 Oxygen Delivery Method Room Air 02/02/21 12:15 Oxygen Flow Rate 0 02/02/21 12:15 Pain Level 0 02/02/21 12:15 Comment 02/02/21 11:25 Lab/Test Results Lab/Test Results: Laboratory Tests Range/Units 02/02/21 02/02/21 02/02/21 11:35 12:28 12:28 WBC (4.4-10.8) 10^3/uL 6.99 RBC (4.36-5.78) 10^6/uL 5.34 Hgb (13.5-17.5) g/dL 14.8 Hct (40.0-50.0) % 44.9 MCV (80-95) fL 84.1 MCH (27.0-33.0) pg 27.7 MCHC (32.0-36.0) % 33.0 RDW (11.8-14.1) % 12.2 Plt Count (130-400) 10^3/uL 234 MPV (8.0-11.0) fL 9.9 Immature Gran % 0.1 Neutrophils % 63.2 Lymphocytes % 26.5 Monocytes % 6.4 Eosinophils % 2.9 Basophils % 0.9 Nucleated RBC % % 0 Absolute Neutrophils (1.2-6.7) 10^3/uL 4.42 Absolute Lymphocytes (1.2-3.4) 10^3/uL 1.85 Absolute Monocytes (0.1-0.8) 10^3/uL 0.45 Absolute Eosinophils (0.0-0.7) 10^3/uL 0.20 Absolute Basophils (0.0-0.2) 10^3/uL 0.06 Sodium (136-145) mmol/L 142 Potassium (3.5-5.1) mmol/L 4.2 Chloride (98-107) mmol/L 104 Carbon Dioxide (21.0-32.0) mmol/L 30.7 Anion Gap (3-11) mmol/L 7.3 BUN (7-18) mg/dL 15 Creatinine (0.70-1.30) mg/dL 1.0 Estimated GFR/1.73 m2 (mL/min/1.73m2) >= 60.00 Glucose (74-106) mg/dL 91 Calcium (8.5-10.1) mg/dL 9.1 Total Bilirubin (0.2-1.0) mg/dL 0.8 AST (15-37) U/L 22 ALT (16-63) U/L 36 Alkaline Phosphatase (46-116) U/L 53 Total Protein (6.4-8.2) g/dL 7.7 Albumin (3.4-5.0) g/dL 4.5 Lipase (73-393) U/L 91 Urine Color (Yellow) Straw Urine Clarity (Clear) Clear Urine pH (5-8) 6.0 Ur Specific Riner (1.005-1.025) 1.010 Urine Protein (Negative) mg/dL Negative Urine Ketones (Negative) mg/dL Negative Urine Blood (Negative) Negative Urine Nitrite (Negative) Negative Urine Bilirubin (Negative) Negative Urine Urobilinogen (Up TO 0.2) EU/dL 0.2 Ur Leukocyte Esterase (Negative) Negative Urine Glucose (Negative) mg/dL Negative PAWSS Have you Been Recently Intoxicated or Drunk Within the Last 30 days?: No Have you Ever Experienced Previous Episodes of Alcohol Withdrawal?: No Have you ever Experienced Withdrawal Seizures?: No Have you ever Experienced Delirium Tremens(DT)s?: No Have you ever undergone Alcohol Rehabilitation Treatment (i.e, inpt ot outpatient treatment programs)?: No Have you ever Experienced Blackouts?: No Have you ever Combined Alcohol with other Downers within the last 90 days?: No Have you ever Combined Alcohol with any other Substance of Abuse during the last 90 days?: No Positive Blood Alcohol level on Presentation? [PCS.BAL]: No Evidence of Increased Autonomic Activity (i.e. HR>120, tremor, sweating, agitation, nausea)?: No Result: 0
== END 2021-02-02 13:47 | disposition home or self-care (01) ==
PROVIDERS: Emergency Provider Physician Assistant; PCP Nurse Practitioner Family
DX: K57.32 Diverticulitis of large intestine without perforation or abscess without bleeding (principal)
CPT/HCPCS: 80053; 83690; 99285; 74177; 81003; 85025; 99284; J3490

== ENCOUNTER 2021-08-11 14:58 | Outpatient (REF) | payer MEDICAID, SELFPAY ==
--- NOTE | 2021-08-11 13:30 | SKI_PTH ---
PATIENT: Mykel Thao LOC: N U#:[id number] AGE/SX: 45/M ROOM: RE08/11/[address]: Benjamín Cross MD : 1975 BED: DIS: 08/11/2021 SPEC #: [id number] RECD: 08/11/21 16:46 STATUS: RISHABH REQ #: [id number] BRENNAN: 08/11/21 13:[address]: Benjamín Cross DEPT: Surgical Specimen RECD BY: Zelda De La Paz ENTERED: 08/11/21 16:47 SP TYPE: MARQUITA DUMONT DR: Kalen Atkinson, WHEEL AND CASTER REPAIRER Tissues: 1 - SKIN BIOPSY(SHAVE/PUNCH) Procedures: SKIN LEVEL 4 Comments: [id number]
== END 2021-08-11 14:59 | disposition home or self-care (01) ==
LOC: LBN 14:58
PROVIDERS: PCP Nurse Practitioner Family; Visit Provider Urology
DX: A63.0 Anogenital (venereal) warts (principal)
CPT/HCPCS: 88305

== ENCOUNTER 2021-09-23 23:57 | Outpatient (REF) | payer MEDICAID, SELFPAY | END 2021-09-23 23:58 | disposition home or self-care (01) | LOC: LBN 23:57 | PROVIDERS: PCP Nurse Practitioner Family; Visit Provider Nurse Practitioner Family | DX: J02.9 Acute pharyngitis, unspecified (principal) | CPT/HCPCS: 87070 ==

== ENCOUNTER 2021-09-28 03:02 | Outpatient (CLI) | payer MEDICAID, SELFPAY ==
[2021-09-28 12:28] LABS: HCT 47.6 % (40.0-50.0); HGB 15.8 g/dL (13.5-17.5); MCH 28.4 pg (27.0-33.0); MCHC 33.2 % (32.0-36.0); MCV 86 fL (80-95); MPV 10.3 fL (8.0-11.0); Platelet Count 231 10^3/uL (130-400); RBC 5.57 10^6/uL (4.36-5.78); RDW-SD 39.8 fL; WBC 6.08 10^3/uL (4.4-10.8)
[2021-09-28 12:35] LABS: Mono Screening Negative (Negative)
[2021-09-28 13:03] LABS: Calculated LDL 139 mg/dL (<100); Cholesterol 233 mg/dL (<200); HDL Cholesterol 65 mg/dL (40-60); Triglyceride 148 mg/dL (<150)
[2021-09-28 13:19] LABS: Anion Gap 9.9 mmol/L (3-11); BUN 20 mg/dL (7-18); CO2 30.1 mmol/L (21.0-32.0); CREATININE 1.3 mg/dL (0.70-1.30); Calcium 9.2 mg/dL (8.5-10.1); Chloride 102 mmol/L (98-107); Glucose 76 mg/dL (74-106); Potassium 4.1 mmol/L (3.5-5.1); Sodium 142 mmol/L (136-145)
[2021-09-29 11:05] LABS: Lyme Ab w Rflx to Lyme Confirm Negative (Negative)
[2021-09-30 00:51] LABS: Anaplasma phagocytophilum Negative (Negative); B. miyamotoi PCR Negative (Negative); Babesia divergens/MO-1 Negative (Negative); Babesia duncani Negative (Negative); Babesia microti Negative (Negative); Ehrlichia chaffeensis Negative (Negative); Ehrlichia ewingii/canis Negative (Negative); Ehrlichia muris eauclairensis Negative (Negative)
== END 2021-09-28 03:03 | disposition home or self-care (01) ==
LOC: LOS 03:02
PROVIDERS: Nurse Practitioner Family; PCP Nurse Practitioner Family; Referring Provider Nurse Practitioner Family; Visit Provider Nurse Practitioner Family
DX: J02.9 Acute pharyngitis, unspecified (principal); R53.83 Other fatigue; B34.9 Viral infection, unspecified; Z13.220 Encounter for screening for lipoid disorders
CPT/HCPCS: 36415; 80048; 80061; 85027; 87798; 86308; 86618

== ENCOUNTER 2022-10-12 13:37 | Outpatient (REF) | payer MEDICAID, SELFPAY ==
--- NOTE | 2022-10-12 13:20 | SKI_PTH ---
PATIENT: Mykel Thao LOC: [facility] U#:[id number] AGE/SX: 47/M ROOM: RE10/12/[address]: ARUNA Love : 1975 BED: DIS: 10/12/2022 SPEC #: [id number] RECD: 10/12/22 18:02 STATUS: RISHABH REHarvey #: [id number] BRENNAN: 10/12/22 13:[address]: Domonique Mccracken DEPT: Surgical Specimen RECD BY: Zelda De La Paz ENTERED: 10/12/22 18:02 SP TYPE: MARQUITA DUMONT DR: Kalen Atkinson, SHEET MILL SUPERVISOR Tissues: 1 - SKIN BIOPSY(SHAVE/PUNCH) Procedures: IMMUNOPEROXIDASE STAIN SKIN LEVEL 4 Comments: [id number]
== END 2022-10-12 13:38 | disposition home or self-care (01) ==
LOC: LBN 13:37
PROVIDERS: PCP Nurse Practitioner Family; Visit Provider Physical Therapy Assistant
DX: L72.9 Follicular cyst of the skin and subcutaneous tissue, unspecified (principal)
CPT/HCPCS: 88305; 88361

== ENCOUNTER 2023-03-29 14:28 | Emergency (ER) | payer MEDICAID, SELFPAY ==
[2023-03-29 14:49] VITALS: BP 131/82; PULSE 78; RESP 18; TEMP 36.8; O2SAT 98
--- NOTE | 2023-03-29 15:01 | ED.GENADUL_ITS ---
HPI General Stated Complaint: Laceration MARAH: 4 Date/Time Provider Initiated Documentation: 03/29/23 14:34. HPI Narrative: MDM Primary survey intact. Reassuring shock index. On secondary survey patient has an approximately 2 cm hemostatic superficial laceration to the ulnar aspect of his left hand that is approximately 1 and half centimeters. Tetanus updated in the ED. No pain or proportion to suggest necrotizing soft tissue infection. Emergency department Pharmacy Technology Instructor Go irrigated the patient's wound. No erythema to suggest cellulitis. No fluctuance to suggest abscess. Patient and I discussed return to the ED if he developed any foul-smelling drainage streaking signs of infection or had any other concerns. Please see procedure note concerning primary closure which was accomplished using cyanoacrylate glue and wound Steri-strips. 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 He was able to control the bleeding himself. He denies any other injuries. He is not anticoagulated. He has no other complaints. He is not certain as to the date of his last tetanus. Exam General: Well-appearing in no acute distress speaking in complete sentences. Head: Normocephalic, atraumatic. Eye: Extraocular eye movements intact. No conjunctival injection. No scleral icterus. Ear, nose, mouth, throat: Grossly normal inspection. Normal voice, handling secretions normally. Neck: Trachea midline. Cardiovascular: Well-perfused distal extremities. Respiratory: Nonlabored respiration. Gastrointestinal: Nondistended abdomen. Musculoskeletal: On the hypothenar eminence of the left hand there is an approximately 1.5 cm hemostatic laceration that is on the ulnar surface of the left hand. 2+ left radial pulse. Cap refill less than 2 seconds in the left fingertips. Sensation and motor function intact in the left hand across the radial, median, and ulnar nerve distributions. Skin: Normal for age and race, grossly normal temperature and turgor. No acute rash. Neurologic: Alert and appropriate, no apparent acute deficits. Psychiatric: Mood and manner are appropriate. Grooming and personal hygiene are appropriate. Related Data Home Medications Medication Instructions Recorded Confirmed sildenafil 50 mg tablet (Viagra) 50 mg PO DAILY PRN sexual activity 08/12/22 03/29/23 #60 tabs ibuprofen 200 mg tablet (Advil) 200 mg PO Q6H PRN 10/11/22 03/29/23 Previous Rx's Medication Instructions Recorded sildenafil 50 mg tablet (Viagra) 50 mg PO DAILY PRN sexual activity 08/12/22 #60 tabs Allergies Allergy/AdvReac Type Severity Reaction Status Date / Time amoxicillin Allergy Severe Swelling/Ed Verified 10/12/22 12:51 edison erythromycin base Allergy Severe lightheaded, Verified 10/12/22 12:51 and itching Penicillins Allergy Severe Anaphylaxsi Verified 10/12/22 12:51 s PFSH All Active Problems (Updated 03/29/23 @ 15:22 by Jose Yepez MD) Laceration of left hand (Acute) Immunization, tetanus-diphtheria (Acute) Skin lesion (Acute) Condyloma acuminatum of penis (Acute) Diverticulitis (Chronic) Chronic anal fissure (Acute) Erectile dysfunction (Acute) Smokeless tobacco use (Acute) Scalp mass (Acute) Penile lesion (Acute) Carpal tunnel syndrome on both sides (Acute) Medical History Normal colonoscopy Surgical History History of appendectomy History of colonoscopy (~04/29/20) Social History Smoking/Tobacco Use Status: Current every day Tobacco Type: smokeless tobacco Smokeless tobacco user: snus Quit status: has quit before Second Hand Exposure: Yes Smoking risk assessment performed?: Yes Alcohol Intake: current Alcohol Intake frequency: a few times a month Alcohol type: beer, wine and hard liquor Drug use: Rarely Substance use type: marijuana Household members: children Housing: house Communication Needs: None Do you need help understanding health information?: Never Pets and animals: Yes Pets and animals: cat(s) and dog(s) Sexually active: Yes Do you think of yourself as: straight/heterosexual Current gender identity: male What is your relationship status?: How often do you talk on the phone with friends or family?: once per week How often do you get together with friends or relatives?: once per week How often do you attend jainism or jainism services?: decline to answer Do you belong to any clubs or organized social groups?: yes Panel score (0-1 are the most socially isolated patients): 1 What type of physical activity do you participate in: bicycling and other Details: [employer], work out Frequency: 1-2 times per week Nannette/Protestant: No preference Seatbelt use: sometimes Helmet use: Yes Helmet use: always Drive intox 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 Drive intox or w/intox racecar driver: rarely Do you feel safe at home: Yes Do you feel safe in your relationship?: Yes Course Vital Signs Vital signs: Vital Signs Temperature 36.8 C 03/29/23 14:49 Pulse 78 03/29/23 14:49 Respiratory Rate 18 03/29/23 14:49 Blood Pressure 131/82 03/29/23 14:49 Pulse Oximetry 98 03/29/23 14:49 Temperature 36.8 C 03/29/23 14:49 Temperature Source Temporal Artery Scan 03/29/23 14:49 Pulse 78 03/29/23 14:49 Respiratory Rate 18 03/29/23 14:49 Respiratory Effort Normal, Non-Labored 03/29/23 14:53 Blood Pressure 131/82 03/29/23 14:49 Blood Pressure Position Supine 03/29/23 14:49 Pulse Oximetry 98 03/29/23 14:49 Oxygen Delivery Method Room Air 03/29/23 14:49 Oxygen Flow Rate 0 03/29/23 14:49 Procedures Laceration Laceration 1: Site: hand Side (If applicable): left Size (cm): 1.5 Description: linear Depth: simple, single layer Pre-repair: wound explored and irrigated extensively Skin layer closed with: other (Cyanoacrylate glue & Steri-Strips) Medical Decision Making Quality:SDSD Health Related Social Needs: No Data to Display Discharge Plan Disposition Patient Disposition: Home Discharge Details Clinical Impression: Immunization, tetanus-diphtheria, Laceration of left hand Primary Care Provider: Kalen Atkinson ED Provider: Jose Yepez Home Meds and New Rx's Prescriptions: Continued sildenafil [Viagra] 50 mg tablet 50 mg PO DAILY PRN (Reason: sexual activity) Qty: 60 3RF Rx Instructions: administer 30 minutes to 4 hours before activity ibuprofen [Advil] 200 mg tablet 200 mg PO Q6H PRN Discharge Instructions Instructions: Laceration (ED) Additional Instructions: You were seen in the emergency department for your laceration which was closed with glue and Steri-Strips. Please return to the emergency department if you develop streaking signs of infection any foul-smelling drainage or any pus from your wound. Please keep your hand dry and warm for the next several days. If your Steri-Strips fall off you may replace them. Your tetanus was updated. Discharge Data Discharge Date/Time-TO BE ENTERED AT DEPARTURE: 03/29/23 15:40
== END 2023-03-29 15:40 | disposition home or self-care (01) ==
PROVIDERS: Emergency Provider Emergency Medicine; PCP Nurse Practitioner Family
DX: S61.412A Laceration without foreign body of left hand, initial encounter (principal); F17.290 Nicotine dependence, other tobacco product, uncomplicated; Z23 Encounter for immunization; W27.0XXA Contact with workbench tool, initial encounter; Y93.89 Activity, other specified; Y92.89 Other specified places as the place of occurrence of the external cause; Y99.0 Civilian activity done for income or pay
CPT/HCPCS: 12001; 90471; 90715; 99283

== ENCOUNTER → 2023-06-03 10:55 | Outpatient (CLI) | payer MEDICAID, SELFPAY ==
--- NOTE | 2023-06-03 10:45 | DI.RAD_ITS ---
Exam(s) XR CHEST 2V PA LATERAL EXAM: XR CHEST 2V PA LATERAL CLINICAL HISTORY: sob, r06.02,? pe or pneumonia TECHNIQUE: 2D digital imaging was performed. Two views. COMPARISON: No exams were available for comparison FINDINGS: HEART: Normal size. Aorta: Not dilated. PULMONARY VASCULATURE: Normal. LUNGS: Clear. PLEURAL SPACE: No pleural effusion or pneumothorax. BONE:Unremarkable for age. Soft tissues: Unremarkable. IMPRESSION: No acute abnormality. DATA REPOSITORY: RADIATION DOSE DELIVERED:
== END ==
PROVIDERS: PCP Nurse Practitioner Family; Visit Provider Nurse Practitioner Family
DX: R06.02 Shortness of breath (principal)
CPT/HCPCS: 71046

== ENCOUNTER 2023-12-05 16:01 | Outpatient (REF) | payer MEDICAID, SELFPAY ==
[2023-12-05 21:03] LABS: Abs Immature Grans 0.07 10^3/uL (0.0-0.06); Absolute Basophil Count 0.06 10^3/uL (0.0-0.2); Absolute Eosinophil Count 0.24 10^3/uL (0.0-0.7); Absolute Lymphocyte Count 1.92 10^3/uL (1.2-3.4); Absolute Monocyte Count 0.72 10^3/uL (0.1-0.8); Absolute Neutrophil Count 4.51 10^3/uL (1.2-6.7); Basophils % 0.8 %; Eosinophils % 3.2 %; HCT 43.1 % (40.0-50.0); HGB 14.1 g/dL (13.5-17.5); Immature Grans % 0.9 %; Lymphocytes % 25.5 %; MCH 27.1 pg (27.0-33.0); MCHC 32.7 % (32.0-36.0); MCV 83 fL (80-95); MPV 10.2 fL (8.0-11.0); Monocytes % 9.6 %; Platelet Count 294 10^3/uL (130-400); RBC 5.21 10^6/uL (4.36-5.78); RDW 11.9 % (11.8-14.1); RDW-SD 36.2 fL; WBC 7.52 10^3/uL (4.4-10.8)
[2023-12-05 21:12] LABS: ALT 23 U/L (16-63); AST 14 U/L (15-37); Albumin 3.8 g/dL (3.4-5.0); Alkaline Phosphatase 67 U/L (46-116); Anion Gap 8.9 mmol/L (3-11); BUN 16 mg/dL (7-18); Bilirubin, Total 0.43 mg/dL (0.2-1.0); CO2 27.1 mmol/L (21.0-32.0); CREATININE 1.1 mg/dL (0.70-1.30); Chloride 103 mmol/L (98-107); Estimated GFR 82.81 (mL/min/1.73m2); Glucose 107 mg/dL (74-106); Potassium 4.1 mmol/L (3.5-5.1); Sodium 139 mmol/L (136-145); Total Protein 6.8 g/dL (6.4-8.2)
== END 2023-12-05 16:02 | disposition home or self-care (01) ==
LOC: LBN 16:01
PROVIDERS: PCP Nurse Practitioner Family; Visit Provider Nurse Practitioner Family
DX: R10.9 Unspecified abdominal pain (principal)
CPT/HCPCS: 80053; 85025

== ENCOUNTER 2024-10-02 09:24 | Outpatient (CLI) | payer MEDICAID, SELFPAY ==
--- NOTE | 2024-10-02 09:26 | DI.RAD_ITS ---
Exam(s) XR LUMBAR SPINE COMPLETE EXAM: XR LUMBAR SPINE COMPLETE CLINICAL HISTORY: low back pain/failing therapy,M54.50. TECHNIQUE: 2D digital imaging was performed of the lumbar spine. Five images were obtained. AP, lateral, right oblique, left oblique and L5-S1 spot views were obtained. COMPARISON: CT CT ABDOMEN PELVIS W from 02/02/2021 FINDINGS: BONES: No fracture or destructive lesion. Small osteophytes are seen at the endplates at L4-L5. No facet hypertrophy identified. DISKS: There is mild disc space narrowing at L5-S1. ALIGNMENT: Lumbar spinal alignment is within normal limits. No spondylolysis or spondylolisthesis. SOFT TISSUE: Normal. IMPRESSION: Mild degenerative changes seen in the lumbar spine. DATA REPOSITORY: RADIATION DOSE DELIVERED:
== END 2024-10-02 09:44 ==
LOC: DI 09:24
PROVIDERS: PCP Nurse Practitioner Family; Visit Provider Nurse Practitioner Family
DX: M51.361 Other intervertebral disc degeneration, lumbar region with lower extremity pain only (principal)
CPT/HCPCS: 72110